=== PATIENT | male | born 1960 | race Caucasian/White ===

== ENCOUNTER 2021-01-06 12:03 | Inpatient (IN) | payer OTHER ==
[2021-01-06 13:22] VITALS: BMI 23.7
[2021-01-06] MEDS ORDERED: METHADONE HCL 10 MG TABLET (FOR DETOX USE ONLY) PO ONE (15:25)
[2021-01-06] MEDS ORDERED: ACETAMINOPHEN 325 MG TABLET (FP) PO PRN (15:25)
[2021-01-06] MEDS ORDERED: MAGNESIUM CITRATE 300 ML BOTTLE PO PRN (15:25)
[2021-01-06] MEDS ORDERED: MENTHOL/PHENOL 1 EACH UD MM PRN (15:25)
[2021-01-06] MEDS ORDERED: MAGNESIUM HYDROX 2400MG/30ML ORAL SUSPENSION 30 ML CUP PO PRN (15:25)
[2021-01-06] MEDS ORDERED: IBUPROFEN 400 MG TABLET (FP) PO PRN (15:25)
[2021-01-06] MEDS ORDERED: NICOTINE POLACRILEX 2 MG GUM BUC PRN (15:25)
[2021-01-06] MEDS ORDERED: MAG HYDROX/AL HYDROX/SIMETH 30 ML UNIT-DOSE CUP PO PRN (15:25)
[2021-01-06] MEDS ORDERED: BISMUTH SUBSALICYLATE 524 MG/30 ML PO PRN (15:25)
[2021-01-06] MEDS ORDERED: METHADONE HCL 10 MG TABLET (FOR DETOX USE ONLY) ONE (17:11)
[2021-01-06] MEDS: hydrOXYzine PAMOATE 25 MG CAPSULE (FP) PO SCH ×2 (18:25→22:46)
[2021-01-06] MEDS: METHOCARBAMOL 500 MG TABLET PO PRN (18:30)
[2021-01-06] MEDS: NICOTINE 7 MG/24 HOURS TOPICAL PATCH TD SCH (18:30)
[2021-01-06] MEDS: THIAMINE HCL 100 MG TABLET (FP) PO SCH (22:46)
[2021-01-06] MEDS: MELATONIN 5 MG TABLETS PO SCH (22:48)
[2021-01-07] MEDS: hydrOXYzine PAMOATE 25 MG CAPSULE (FP) PO SCH ×5 (06:51→22:07)
[2021-01-07] MEDS: ONDANSETRON *ODT* 4 MG TABLET SL PRN (08:30)
[2021-01-07] MEDS ORDERED: METHADONE HCL 5 MG TABLET (FOR DETOX USE ONLY) ONE (09:06)
[2021-01-07] MEDS ORDERED: METHADONE HCL 10 MG TABLET (FOR DETOX USE ONLY) ONE (09:06)
[2021-01-07] MEDS ORDERED: METHADONE (DETOX) 20 MG, METHADONE (DETOX) 5 MG PO ONE (10:00)
[2021-01-07 10:02] LABS: HEMATOCRIT 42.8 % (35.4-49); HEMOGLOBIN 14.2 GM/dL (11.7-16.9); MCH 31.3 pg (25.7-33.7); MCHC 33.2 g/dl (32.0-35.9); MEAN CELL VOLUME 94.5 fl (80-96); MEAN PLT VOLUME 9.2 fl (7.5-11.1); PLATELET COUNT 211 10^3/uL (134-434); RBC 4.53 M/mm3 (4.00-5.60); RDW 14.5 % (11.9-15.9); WHITE BLOOD COUNT 7.7 K/mm3 (4.0-10.0)
[2021-01-07] MEDS: METHOCARBAMOL 500 MG TABLET PO PRN ×2 (10:04→17:36)
[2021-01-07] MEDS: PRENATAL VITAMINS W/ FOLIC ACID TABLET (FP) PO SCH (10:04)
[2021-01-07] MEDS: NICOTINE 7 MG/24 HOURS TOPICAL PATCH TD SCH (10:07)
[2021-01-07 10:14] LABS: ALBUMIN 3.5 g/dl (3.4-5.0); BLOOD UREA NITROGEN 13.7 mg/dL (7-18)
[2021-01-07 10:17] LABS: CREATININE 0.7 mg/dL (0.55-1.3)
[2021-01-07 10:19] LABS: BILIRUBIN,TOTAL 0.5 mg/dL (0.2-1); TOT PROT 7.2 g/dl (6.4-8.2)
[2021-01-07] MEDS: MELATONIN 5 MG TABLETS PO SCH (22:07)
[2021-01-07] MEDS: THIAMINE HCL 100 MG TABLET (FP) PO SCH (22:07)
[2021-01-08] MEDS: ONDANSETRON *ODT* 4 MG TABLET SL PRN (03:51)
[2021-01-08] MEDS: cloNIDine HCL 0.1 MG TABLET PO PRN ×3 (03:52→15:51)
[2021-01-08] MEDS: METHOCARBAMOL 500 MG TABLET PO PRN ×2 (07:29→15:51)
[2021-01-08] MEDS: hydrOXYzine PAMOATE 25 MG CAPSULE (FP) PO SCH ×5 (08:04→21:47)
[2021-01-08] MEDS ORDERED: METHADONE HCL 10 MG TABLET (FOR DETOX USE ONLY) PO ONE (10:00)
[2021-01-08] MEDS: PRENATAL VITAMINS W/ FOLIC ACID TABLET (FP) PO SCH (10:06)
[2021-01-08] MEDS: NICOTINE 7 MG/24 HOURS TOPICAL PATCH TD SCH (10:06)
[2021-01-08] MEDS ORDERED: TRIMETHOBENZAMIDE HCL 200MG/2ML INJ IM PRN (10:43)
[2021-01-08] MEDS: MELATONIN 5 MG TABLETS PO SCH (21:47)
[2021-01-08] MEDS: THIAMINE HCL 100 MG TABLET (FP) PO SCH (21:47)
[2021-01-09] MEDS: METHOCARBAMOL 500 MG TABLET PO PRN ×3 (02:52→22:18)
[2021-01-09] MEDS: hydrOXYzine PAMOATE 25 MG CAPSULE (FP) PO SCH (06:04)
[2021-01-09] MEDS: ACETAMINOPHEN 325 MG TABLET (FP) PO PRN (06:04)
[2021-01-09] MEDS ORDERED: TRIMETHOBENZAMIDE HCL 200MG/2ML INJ IM PRN (08:40)
[2021-01-09] MEDS ORDERED: cloNIDine HCL 0.1 MG TABLET PO PRN (08:40)
[2021-01-09] MEDS ORDERED: METHADONE HCL 5 MG TABLET (FOR DETOX USE ONLY) ONE (09:58)
[2021-01-09] MEDS ORDERED: METHADONE HCL 10 MG TABLET (FOR DETOX USE ONLY) ONE (09:58)
[2021-01-09] MEDS ORDERED: METHADONE (DETOX) 10 MG, METHADONE (DETOX) 5 MG PO ONE (10:00)
[2021-01-09] MEDS: PRENATAL VITAMINS W/ FOLIC ACID TABLET (FP) PO SCH (10:16)
[2021-01-09] MEDS: diazePAM 5 MG TABLET PO PRN ×3 (10:16→22:18)
[2021-01-09] MEDS: cloNIDine HCL 0.1 MG TABLET PO PRN (10:17)
[2021-01-09] MEDS: NICOTINE 14 MG/24 HOURS TOPICAL PATCH TD SCH (10:19)
[2021-01-09] MEDS: hydrOXYzine PAMOATE 25 MG CAPSULE (FP) PO PRN (17:54)
[2021-01-09] MEDS: MELATONIN 5 MG TABLETS PO SCH (22:18)
[2021-01-09] MEDS: THIAMINE HCL 100 MG TABLET (FP) PO SCH (22:18)
[2021-01-09] MEDS: SUVOREXANT 10 MG TABLET PO PRN (22:18)
[2021-01-10] MEDS: diazePAM 5 MG TABLET PO PRN ×3 (05:49→14:36)
[2021-01-10] MEDS: cloNIDine HCL 0.1 MG TABLET PO PRN ×3 (07:39→22:22)
[2021-01-10] MEDS: METHOCARBAMOL 500 MG TABLET PO PRN ×2 (07:39→14:10)
[2021-01-10] MEDS ORDERED: METHADONE HCL 10 MG TABLET (FOR DETOX USE ONLY) PO ONE (10:00)
[2021-01-10] MEDS: PRENATAL VITAMINS W/ FOLIC ACID TABLET (FP) PO SCH (10:34)
[2021-01-10] MEDS: NICOTINE 14 MG/24 HOURS TOPICAL PATCH TD SCH (10:34)
[2021-01-10] MEDS: ONDANSETRON *ODT* 4 MG TABLET SL PRN (10:36)
[2021-01-10] MEDS: ACETAMINOPHEN 325 MG TABLET (FP) PO PRN (14:10)
[2021-01-10] MEDS: THIAMINE HCL 100 MG TABLET (FP) PO SCH (22:18)
[2021-01-10] MEDS: MELATONIN 5 MG TABLETS PO SCH (22:18)
[2021-01-10] MEDS: SUVOREXANT 10 MG TABLET PO PRN (22:21)
[2021-01-11] MEDS: METHOCARBAMOL 500 MG TABLET PO PRN ×2 (04:49→22:17)
[2021-01-11] MEDS: ONDANSETRON *ODT* 4 MG TABLET SL PRN (04:49)
[2021-01-11] MEDS ORDERED: METHADONE HCL 5 MG TABLET (FOR DETOX USE ONLY) PO ONE (06:00)
[2021-01-11] MEDS: NICOTINE 14 MG/24 HOURS TOPICAL PATCH TD SCH (10:09)
[2021-01-11] MEDS: PRENATAL VITAMINS W/ FOLIC ACID TABLET (FP) PO SCH (10:09)
[2021-01-11] MEDS: hydrOXYzine PAMOATE 25 MG CAPSULE (FP) PO PRN ×2 (10:10→13:45)
[2021-01-11] MEDS: cloNIDine HCL 0.1 MG TABLET PO PRN (17:40)
[2021-01-11] MEDS: SUVOREXANT 10 MG TABLET PO PRN (22:16)
[2021-01-11] MEDS: THIAMINE HCL 100 MG TABLET (FP) PO SCH (22:17)
[2021-01-11] MEDS: MELATONIN 5 MG TABLETS PO SCH (22:17)
[2021-01-12] MEDS: METHOCARBAMOL 500 MG TABLET PO PRN (04:11)
[2021-01-12] MEDS: hydrOXYzine PAMOATE 25 MG CAPSULE (FP) PO PRN (04:11)
[2021-01-12 06:46] VITALS: BP 143/86; PULSE 70; TEMP 97.1
[2021-01-12] MEDS: cloNIDine HCL 0.1 MG TABLET PO PRN (06:46)
[2021-01-12 10:07] LABS: SARS-CoV-2 NAA Not Detected (Not Detected)
== END 2021-01-12 06:40 | disposition home or self-care (01) | DRG 897 ==
LOC: YASAS 12:03 → Y3N 16:46
PROVIDERS: ADMIT Allergy & Immunology; ATTEND Allergy & Immunology
PROC: HZ2ZZZZ Detoxification Services for Substance Abuse Treatment (ICD-10-PCS; principal; 2021-01-06)
DX: F11.23 Opioid dependence with withdrawal (principal); F17.213 Nicotine dependence, cigarettes, with withdrawal; F19.24 Other psychoactive substance dependence with psychoactive substance-induced mood disorder; M54.5 Low back pain; G89.29 Other chronic pain; Z85.819 Personal history of malignant neoplasm of unspecified site of lip, oral cavity, and pharynx; R11.10 Vomiting, unspecified; R26.2 Difficulty in walking, not elsewhere classified; Z99.89 Dependence on other enabling machines and devices; Z56.0 Unemployment, unspecified
CPT/HCPCS: 36415; 80053; 85027; 86780; 93005; 93010; C9803; J0735; Q0162; U0003; U0005